=== PATIENT | female | born 1995 | race Caucasian/White ===

== ENCOUNTER 2022-01-30 06:08 | Inpatient (IN) ==
[2022-01-30] MEDS ORDERED: D5 1/2 NS 1,000 ML 1,000 ML IV ONE (06:44)
[2022-01-30] MEDS ORDERED: BETADINE SOLN ONE (06:44)
[2022-01-30] MEDS ORDERED: PITOCIN ONE (06:44)
[2022-01-30] MEDS ORDERED: D5 1/2 NS 1,000 mL + PITOCIN 20 UNITS/L IV 20 UNITS/1,000 ML BAG IV ONE (06:45)
[2022-01-30] MEDS ORDERED: D5 LR + PITOCIN 10 UNITS/L 10 UNITS/1,000 ML BAG IV ONE (06:45)
[2022-01-30] MEDS ORDERED: REGLAN INJ 10 MG VIAL IVP PRN (07:10)
[2022-01-30] MEDS ORDERED: MORPHINE SULFATE INJ 2 MG INJ IVP PRN (07:10)
[2022-01-30] MEDS ORDERED: PHENERGAN INJ 25 MG IM PRN ×2 (07:10→15:05)
[2022-01-30] MEDS ORDERED: D5 LR + PITOCIN 10 UNITS/L 10 UNITS/1,000 ML BAG IV PRN (07:10)
[2022-01-30] MEDS ORDERED: PITOCIN IVP ONE (07:10)
[2022-01-30] MEDS ORDERED: STADOL INJ IVP PRN (07:14)
[2022-01-30] MEDS ORDERED: NS 100 ML IV 100 ML ONE ×2 (07:16→11:57)
[2022-01-30] MEDS ORDERED: AMPICILLIN VIAL 2 GRAM ONE (07:16)
[2022-01-30] MEDS ORDERED: NUBAIN INJ 20 MG AMP IVP PRN (07:26)
[2022-01-30] MEDS ORDERED: D5 1/2 NS 1,000 ML 1,000 ML IV SCH (08:00)
[2022-01-30] MEDS ORDERED: AMPICILLIN VIAL 2 GRAM 2 G in NS 100 ML IV + SPIKE MINIBAG* 100 ML IV SCH (08:00)
[2022-01-30] MEDS ORDERED: FENTANYL VIAL INJ 100 mcg ONE (08:55)
[2022-01-30] MEDS ORDERED: NAROPIN EPIDURAL 0.2% 100 ML ONE (08:56)
[2022-01-30] MEDS ORDERED: LR 1,000 ML IV 1,000 ML IV ONE (08:56)
[2022-01-30] MEDS ORDERED: ZOFRAN INJ 4 MG VIAL ONE (09:28)
[2022-01-30] MEDS ORDERED: ZOFRAN INJ 4 MG VIAL IVP ONE (09:30)
[2022-01-30] MEDS ORDERED: XYLOCAINE-MPF 2% ONE (11:48)
[2022-01-30] MEDS ORDERED: AMPICILLIN VIAL 1 GRAM ONE (11:57)
[2022-01-30] MEDS ORDERED: MARCAINE 0.25% INJ ONE (13:09)
[2022-01-30] MEDS ORDERED: MOTRIN TAB 800 MG PO PRN ×2 (15:05→15:19)
[2022-01-30] MEDS: D5 1/2 NS 1,000 ML 1,000 ML with PITOCIN 20 UNITS IV SCH ×2 (15:08)
[2022-01-30] MEDS ORDERED: DERMOPLAST PAIN RELIEF SPRAY TOP PRN (15:19)
[2022-01-30] MEDS ORDERED: AMBIEN PO PRN (15:19)
[2022-01-30] MEDS ORDERED: MILK OF MAGNESIA PO PRN (15:19)
[2022-01-31] MEDS: D5 1/2 NS 1,000 ML 1,000 ML with PITOCIN 20 UNITS IV SCH ×4 (02:03→08:27)
[2022-01-31 05:29] LABS: HEMATOCRIT 33.9 % (36.0-47.0); HEMOGLOBIN 11.7 g/dL (12.0-16.0)
--- NOTE | 2022-01-31 08:25 | NOTE.PROOB ---
progress Note OB- Subjective Data Subjective: No complaints, decreased lochia. Tolerating regular diet. No N/V. Ambulating well. No dysuria. Objective Data Result Diagrams: 01/31/22 04:15 Objective Data: CV= RRR no MRG Lungs=CTA Bilaterally Abd=(+) BS, soft, NTND, Fundus firm/NT/ at 3 cm below umbilicus. Ext=no edema, NT, no cords Assessment Assessment: ready for D/C Plan (1) (spontaneous vaginal delivery): Plan: pelvic rest for 6 weeks
[2022-01-31] MEDS ORDERED: PRENATAL PLUS PO SCH (09:00)
[2022-01-31 14:32] VITALS: BP 108/67
== END 2022-01-31 15:50 | disposition home or self-care (01) | DRG 807 ==
LOC: LD 06:08 → MED/SURG 15:20
PROVIDERS: ADMIT Obstetrics & Gynecology; ATTEND Obstetrics & Gynecology
DX: Z01.812 Encounter for preprocedural laboratory examination; Z3A.40 40 weeks gestation of pregnancy; Z37.0 Single live birth; O80 Encounter for full-term uncomplicated delivery; Z20.822 Contact with and (suspected) exposure to COVID-19; Z01.818 Encounter for other preprocedural examination